=== PATIENT | female | born 1955 | race Caucasian/White ===

== ENCOUNTER → 2018-10-15 | Outpatient (CLI) | payer OTHER | LOC: FIMAGING 08:11 | PROVIDERS: ATTEND Internal Medicine | DX: Z12.31 Encounter for screening mammogram for malignant neoplasm of breast (principal) ==

== ENCOUNTER 2019-01-06 17:50 | Emergency (ER) | payer OTHER ==
--- NOTE | 2019-01-06 19:41 | EDPHY ---
H & P Stated Complaint: cramping, vaginal bleeding Time Seen by Provider: 01/06/19 18:08 HPI/ROS: CHIEF COMPLAINT: Vaginal bleeding History by patient HISTORY OF PRESENT ILLNESS: 63-year-old woman who is postmenopausal on compounded estrogen and progesterone presents complaining of acute onset of lower abdominal cramping and vaginal bleeding today. She describes the amount of bleeding as fairly heavy like a normal. However she has not had and season many years. She has not missed any doses of her as she did in progesterone in this red no change in the dosages. She denies any syncope, near-syncope chest pain or shortness of breath or lightheadedness. She took Aleve for the crampy pain in this has improved. REVIEW OF SYSTEMS: As in HPI, and all other systems reviewed and are negative Source: Patient - Personal History Current Tetanus Diphtheria and Acellular Pertussis (TDAP): Yes - Medical/Surgical History Hx Asthma: No Hx Chronic Respiratory Disease: No Hx Diabetes: No Hx Cardiac Disease: No Hx Renal Disease: No Hx Cirrhosis: No Hx Alcoholism: No Hx HIV/AIDS: No Hx Splenectomy or Spleen Trauma: No Other PMH: PT for pelvic floor fascia release,. ovarian cysts. 1 vaginal - Social History Smoking Status: Never smoked - Physical Exam Exam: General Appearance: Alert,[ ] Head: normocephalic, atraumatic Eyes: Pupils equal and round, reactive to light, no pallor or injection. Mouth: Mucous membranes moist. Oropharynx clear Neck: No bony tenderness, full range of motion Respiratory: Normal, effort, lungs are clear to auscultation. No wheezes, rales or rhonchi. Cardiovascular: Regular rate and rhythm. S1, S2, no murmurs, gallops or rubs appreciated Gastrointestinal: Abdomen is soft and nontender, no masses, bowel sounds normal. : normal external genitalia, positive bleeding from cervical os, cervix without lesion Back: No CVA tenderness, no bony tenderness Neurological: Awake, alert and oriented x 3, cranial nerves 2-12 intact, no pronator drift, normal gait, Skin: Warm and dry, no rashes. Musculoskeletal: No deformities or tenderness. Extremities: full range of motion, no edema, DP2+ bilat Psychiatric: Patient has normal affect, there is no agitation. Constitutional: Initial Vital Signs Temperature (C) 36.6 C 01/06/19 17:59 Heart Rate 75 01/06/19 17:59 Respiratory Rate 16 01/06/19 17:59 Blood Pressure 116/65 01/06/19 17:59 O2 Sat (%) 96 01/06/19 17:59 O2 Delivery Mode Room Air Allergies/Adverse Reactions: No Known Allergies Allergy (Unverified 01/06/19 18:08) Home Medications: Medication Instructions Recorded Estrogens, Conjugated 01/06/19 Levothyroxine 01/06/19 Naltrexone 01/06/19 Progesterone 01/06/19 Testosterone 01/06/19 Vaginal Suppository 01/06/19 Medical Decision Making ED Course/Re-evaluation: 63-year-old woman presents with postmenopausal bleeding x1 day. Patient is hemodynamically stable. Initial hemoglobin is within normal limits. Pelvic ultrasound was obtained. Ultrasound showed thickened endometrial lining. I discussed results with radiologist. I discussed case with OBGYN doctor on-call , Dr. Ham, who will arrange to see the patient in follow-up for endometrial biopsy. I discussed these results with the patient and explained the follow-up plan. She understands. Patient remained hemodynamically stable in the ED, we discussed return precautions including bleeding greater than 2 pads an hour.. - Data Points Medications Given: Discontinued Medications Sodium Chloride (Ns) 1,000 mls @ 0 mls/hr IV EDNOW ONE; Wide Open PRN Reason: Protocol Stop: 01/06/19 20:02 Last Admin: 01/06/19 20:12 Dose: 1,000 mls Point of Care Test Results: CBC CBC Collection Date 01/06/19 CBC Collection Time 18:30 WBC 5.53 RBC 4.20 HGB 12.7 HCT 37.8 PLT 219 Neut # 3.57 Neut 64.5 LYMPH # 1.37 LYMPH 24.8 MCV 90.0 Chemistry 01/06/19 18:41 POC Sodium 137 mEq/L mEq/L (135-145) POC Potassium 4.1 mEq/L mEq/L (3.3-5.0) POC Chloride 108.0 mEq/L mEq/L (97-110) POC Total CO2 26 mEq/L mEq/L (22-31) POC BUN 18 mg/dL mg/dL (7-23) POC Creatinine 0.5 mg/dL L mg/dL (0.6-1.0) POC Glucose 101 mg/dL H mg/dL (70-100) POC Calcium 9.0 mg/dL mg/dL (8.5-10.4) Departure - Departure Disposition: Home, Routine, Self-Care Clinical Impression: Postmenopausal vaginal bleeding Condition: Good Instructions: Dysfunctional Uterine Bleeding (ED) Additional Instructions: You were seen by Dr. Kathleen Barnes today. You are having postmenopausal bleeding. Your ultrasound showed thickened endometrium (lining of your uterus). You will need an endometrial biopsy to determine the cause of this. Please call Dr. Ham and [facility] tomorrow morning to schedule an appointment to have an endometrial biopsy. Return for any worsening or new concerns. Referrals: Dorys Montero MD [Primary Care Provider] - As per Instructions Suzanne Ham MD [Medical Doctor] - As per Instructions
[2019-01-06] MEDS ORDERED: NS 1,000 ML IV ONE (20:01)
[2019-01-06 20:45] VITALS: BP 108/72
== END 2019-01-06 21:05 | disposition home or self-care (01) ==
LOC: CED 17:50
DX: N95.0 Postmenopausal bleeding (principal); R93.89 Abnormal findings on diagnostic imaging of other specified body structures; E86.9 Volume depletion, unspecified
CPT/HCPCS: 76856-PO; 80048-ER; 96360-ER